=== PATIENT | male | born 1990 | race Caucasian/White ===

== ENCOUNTER 2020-04-17 21:07 | Emergency (ER) | payer OTHER ==
[~2020-04-17] VITALS: Ht 177.8 cm; Wt 83.9 kg
[2020-04-17] MEDS ORDERED: TETRACAINE HCL 0.5% OPTH(EYE) SOLN 4ML LEFTEYE ONE (21:30)
[2020-04-17] MEDS ORDERED: ONDANSETRON HCL 4 MG/2 ML VIAL IV ONE (22:15)
[2020-04-17] MEDS ORDERED: MORPHINE SULFATE 4 MG/ML SYR/VIAL IV ONE ×2 (22:15→23:45)
[2020-04-17] MEDS ORDERED: SODIUM CHLORIDE 0.9% 1,000 ML IV ONE (22:15)
[2020-04-17 23:25] VITALS: BP 127/87
[2020-04-18 01:10] LABS: INR 1.02 (0.9-1.15); Partial Thromboplastin Time 27.6 sec (23.0-31.2)
[2020-04-18 01:21] LABS: Alanine Aminotransferase 47 U/L (16-61); Albumin 4.1 g/dL (3.4-5.0); Anion Gap 10 (5-15); Aspartate Aminotransferase 71 U/L (15-37); Blood Urea Nitrogen 10 mg/dL (7-18); Calcium 8.2 mg/dL (8.5-10.1); Carbon Dioxide 22 mmol/L (21-32); Chloride 109 mmol/L (98-107); GFR African American 129 mL/min; GFR Non-African American 106 mL/min; Glucose 111 mg/dL (74-106); Magnesium 2.2 mg/dL (1.6-2.6); Potassium 3.5 mmol/L (3.5-5.1); Sodium 141 mmol/L (136-145)
[2020-04-18 01:26] LABS: Alkaline Phosphatase 88 U/L (45-117); Bilirubin, Total 0.7 mg/dL (0.2-1.0); Total Protein 7.3 g/dL (6.4-8.2)
== END 2020-04-18 00:30 | disposition short-term general hospital (02) ==
LOC: ER 21:11
DX: S05.32XA Ocular laceration without prolapse or loss of intraocular tissue, left eye, initial encounter (principal); H33.012 Retinal detachment with single break, left eye; X58.XXXA Exposure to other specified factors, initial encounter; Y93.89 Activity, other specified; Y92.89 Other specified places as the place of occurrence of the external cause; Y99.8 Other external cause status
CPT/HCPCS: 36415; 70480; 80053; 83605; 83735; 83880; 84443; 84484; 85610; 85730; 93005; 96361; 96374; 96375; 96376; 99285; J2270; J2405; J7030

== ENCOUNTER 2020-09-12 19:33 | Emergency (ER) | payer OTHER ==
[~2020-09-12] VITALS: Ht 177.8 cm; Wt 83.9 kg
[2020-09-12] MEDS ORDERED: BACITRACIN TOP OINT 1 UD PKG TOP ONE (22:30)
[2020-09-12] MEDS ORDERED: cefTRIAXone SOD 1,000 MG VL IM ONE (22:30)
[2020-09-12] MEDS ORDERED: IBUPROFEN 600 MG TAB PO ONE (22:30)
[2020-09-12 23:10] VITALS: BP 137/87
== END 2020-09-12 23:15 | disposition home or self-care (01) ==
LOC: ER 19:34
DX: S61.211A Laceration without foreign body of left index finger without damage to nail, initial encounter (principal); F12.10 Cannabis abuse, uncomplicated; W26.9XXA Contact with unspecified sharp object(s), initial encounter; Y93.89 Activity, other specified; Y92.89 Other specified places as the place of occurrence of the external cause; Y99.8 Other external cause status
CPT/HCPCS: 12002; 73140; 96372; 99283; J0696

== ENCOUNTER 2024-06-16 20:59 | Emergency (ER) | payer MEDICAID, OTHER ==
[~2024-06-16] VITALS: Ht 177.8 cm; Wt 84.0 kg
--- NOTE | 2024-06-16 21:07 | ED.PDOC ---
Psychiatric HPI Comments 33-year-old male with no PMHx or PSHx brought in by EMS presents with a chief complaint of suicidal ideation and alcohol intoxication. Patient was brought in by [facility] and fire department after being found sleeping in his bed with a belt around his neck. Patient is heavily intoxicated and has slurred speech. Patient reports that he tried to take his life and "I don't want to be here, you guys should have left me in my bed". Per , patient has a DUI. Patient uncooperative at time of physical assessment. 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, Medications, Allergies Information Source: Emergency Med Personnel Mode of Arrival: EMS Severity: Unable to Care for Self, Unable to Control Self Severity of Pain: None Severity of Mental Status: Moderate Severity of Symptoms: Moderate Timing: Minutes Duration: Since onset Prehospital treatment: None Presents with: Suicidal Ideation, Alcohol Intoxication Attempt: Hanging Ingestion: ETOH Circumstance: Found:Sleeping Current substance abuse: ETOH History of: Suicidal Attempt Past Medical History PAST MEDICAL HISTORY: Denies Surgical History: Denies all surgeries Family History Family History: Unknown Social History Smoker: Non-Smoker, Other Alcohol: Heavy Drugs: Marijuana Lives In: Home Constitutional: denies: chills, diaphoresis, fatigue, fever, malaise, sweats, weakness, others EENTM: denies: blurred vision, double vision, ear bleeding, ear discharge, ear drainage, ear pain, ear ringing, eye pain, eye redness, hearing loss, mouth pain, mouth swelling, nasal discharge, nose bleeding, nose congestion, nose pain, photophobia, tearing, throat pain, throat swelling, voice changes, others Respiratory: denies: cough, hemoptysis, orthopnea, SOB at rest, shortness of breath, SOB with excertion, stridor, wheezing, others Cardiovascular: denies: chest pain, dizzy spells, diaphoresis, Dyspnea on exertion, edema, irregular heart beat, left arm pain, lightheadedness, palpitations, PND, syncope, others Gastrointestinal: denies: abdomen distended, abdominal pain, blood streaked bowels, constipated, diarrhea, dysphagia, difficulty swallowing, hematemesis, melena, nausea, poor appetite, poor fluid intake, rectal bleeding, rectal pain, vomiting, others Genitourinary: denies: burning, dysuria, flank pain, frequency, hematuria, incontinence, penile discharge, penile sore, pain, testicle pain, testicle swelling, urgency, others Neurological: denies: dizziness, fainting, headache, left sided numbness, left sided weakness, numbness, paresthesia, pre-existing deficit, right sided numbness, right sided weakness, seizure, speech problems, tingling, tremors, weakness, others Musculoskeletal: denies: back pain, gout, joint pain, joint swelling, muscle p ain, muscle stiffness, neck pain, others Integumetry: denies: bruises, change in color, change in hair/nails, dryness, laceration, lesions, lumps, rash, wounds, others Allergic/Immunocompromised: denies: Difficulty Healing, Frequent Infections, Hives, Itching, others Hematologic/Lymphatic: denies: anemia, blood clots, easy bleeding, easy bruising, swollen glands, others Endocrine: denies: excessive hunger, excessive sweating, excessive thirst, excessive urination, flushing, intolerance to cold, intolerance to heat, unexplained weight gain, unexplained weight loss, others Psychiatric: reports: suicidal; denies: anxiety, bipolar disorder, depression, hopeless, panic disorder, schizophrenia, sleepless, others All Other Systems: Reviewed and Negative Physical Exam General Appearance: No Apparent Distress, Normal, Severe Distress HEENT: Normal ENT Inspection, Pharynx Normal, TMs Normal Neck: Full Range of Motion, Non-Tender, Normal, Normal Inspection Respiratory: Chest Non-Tender, Lungs Clear, No Accessory Muscle Use, No Respiratory Distress, Normal Breath Sounds, Other (Alcohol on his breath) Cardiovascular: No Edema, No JVD, No Murmur, No Gallop, Normal Peripheral Pulses, Regular Rate/Rhythm Breast Exam: Deferred Gastrointestinal: No Organomegaly, Non Tender, No Pulsatile Mass, Normal Bowel Sounds, Soft Genitalia: Deferred Pelvic: Deferred Rectal: Deferred Extremities: No calf tenderness, Normal capillary refill, Normal inspection, Normal range of motion, Non-tender, No pedal edema Musculoskeletal : Apperance: Normal Neurologic: Alert, labor arbitrator II-XII nml as Tested, No Motor Deficits, Normal Affect, Normal Mood, No Sensory Deficits Cerebellar Function: Normal Reflexes: Normal Skin: Dry, Normal Color, Warm Lymphatic: No Adenopathy Was a procedure done? Was a procedure done?: No Psych Differential Dx Psych. Differential Dx: Depression Suicidal Differential Dx: Substance Abuse X-Ray, Labs, Meds, VS Vital Signs Date Time Temp Pulse Resp B/P (MAP) Pulse Ox O2 Delivery O2 Flow Rate FiO2 06/17/24 08:17 97.6 56 12 102/56 (71) 97.6 06/17/24 08:17 56 12 Room Air* 0 06/17/24 03:32 111 17 98 Room Air* 0 06/17/24 03:30 69 16 105/54 (71) 92 06/17/24 02:30 70 16 105/57 (73) 92 06/17/24 01:30 71 15 106/52 (70) 92 06/17/24 00:30 60 13 108/57 (74) 92 06/16/24 23:30 64 13 104/51 (68) 92 06/16/24 22:30 79 15 131/74 (93) 92 06/16/24 21:55 97.9 85 14 138/79 (98) 92 97.9 06/16/24 21:07 103 16 144/82 (102) 99 Current Medications Medications (Trade) Dose Ordered Sig/Alexey Route Start Time Stop Time Status Last Admin Haloperidol Lactate (Haldol) 10 mg ONCE ONCE IM 06/16/24 21:15 06/16/24 21:16 DC 06/16/24 21:43 Lorazepam (Ativan Inj) 2 mg ONCE ONCE IM 06/16/24 21:15 06/16/24 21:16 DC 06/16/24 21:41 Diphenhydramine HCl (Benadryl Injection) 50 mg ONCE ONCE IM 06/16/24 21:15 06/16/24 21:16 DC 06/16/24 21:42 The patient is extremely and severely agitated and combative. Unwilling to cooperated and had to be sedated with Haldol Ativan and Benadryl. Time of 1ST Reevaluation: 21:30 Reevaluation 1ST: Unchanged Patient Education/Counseling: Diagnosis, Treatment, Prognosis Family Education/Counseling: No Family Present Departure 1 Departure Time of Disposition: 09:49 (Patient was cleared for discharge by psychiatry. 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 You can take Tylenol or Motrin as needed for pain. You should follow up with your regular doctor within 1 week. You should stay well rested and well hydrated. If your symptoms worsen or you have any other concerns please return to the emergency room. Discharged With: Self Critical Care Note Critical Care Time?: No Stability Stability form required: No I personally scribed for TRACY INIGUEZ MD ([email or web address]) on 06/16/24 at 21:07. Electronically submitted by Abdiel Mason ([email or web address]). TRACY INIGUEZ MD Jun 16, 2024 21:07 SARIKA PENA MD Jun 17, 2024 09:49
[2024-06-16] MEDS: SODIUM CHLORIDE 0.9% 1,000 ML IV ONE ×2 (21:15)
[2024-06-16] MEDS: LORazepam 2MG/ML-1ML VIAL IM ONE (21:41)
[2024-06-16] MEDS: diphenhdrAMINE HCL 50 MG/1 ML VL IM ONE (21:42)
[2024-06-16] MEDS: HALOPERIDOL LACTATE 5 MG/ML INJ VIAL IM ONE (21:43)
[2024-06-17 03:32] VITALS: PULSE 111; RESP 17; O2SAT 98
[2024-06-17 08:17] VITALS: BP 102/56; PULSE 56; RESP 12; TEMP 97.6
--- NOTE | 2024-06-17 09:29 | DVHINCON2 ---
Date of Service if different f: Jun 17, 2024 Time of Service: 09:07 Consultation ([facility]) Consulting Physician: NAEL PITT MD Appearance: Stated age Psychomotor activity: WNL, Calm Behavioral: Cooperative Eye contact: Appropriate Speech: WNL Affect: Appropriate, Mood Congruent Mood: Depressed Thought processes: Linear/Goal-directed Thought content: WNL Suicidal ideations: Absent Homicidal ideations: Absent Orientation: Person, Place, Time, Situation Memory intact: Recent Intellect: Average Abstractability: WNL Concentration: Adequate Attention: Adequate Judgement: WNL Insight: Good Vitals Vital Signs Date Time Temp Pulse Resp B/P (MAP) Pulse Ox O2 Delivery O2 Flow Rate FiO2 06/17/24 08:17 97.6 56 12 102/56 (71) 97.6 06/17/24 08:17 Room Air* 0 21 06/17/24 03:32 98 Treatment plan discussed: With staff Medication adjusted: No Labs ordered: No Psychotherapy provided: No Type: Voluntary History of Present Illness Reason for Consult : psychiatric evaluation PER ED PHYSICIAN: 33-year-old male with no PMHx or PSHx brought in by EMS presents with a chief complaint of suicidal ideation and alcohol intoxication. Patient was brought in by [facility] and fire department after being found sleeping in his bed with a belt around his neck. Patient is heavily intoxicated and has slurred speech. Patient reports that he tried to take his life and "I don't want to be here, you guys should have left me in my bed". Per [facility], patient has a DUI. Patient uncooperative at time of physical assessment. PSYCHIATRIST HPI: The patient was seen and evaluated at [facility] ED via telepsychiatry platform. 33 yr old male BIBA with suicidal ideation and alcohol intoxication. He was found with a belt around his neck asleep. He reported he was highly intoxicated yesterday. He got upset about work and started drinking alcohol and figures he had at least six double shots. His friend found him when he was sleeping. He denied having any suicidal ideation, plan or intent. He reported he plans to go to alcoholic anonymous and is motivated to stop drinking so he can be there for his child. He noted he was upset due to getting A DUI on his way home for work so went home and fell asleep. He has a past DUI 12 years ago so is aware of the legal stress and requirements around it as far as substance use classes and sobriety. He is concerned that he may lose his job, but denied having suicidal or homicidal ideation and denied having auditory and visual hallucinations. Past Psychiatric History : No past hospitalization, treatment or suicide a ttempts. Past Medical History: hypertension Current Medications: losartan NKDA Substance use: Alcohol- sometimes drinks a lot but sometimes goes without for a month or two. Received DUI yesterday on his way home from work. Had DUI 12 years. Denied other substance use. Social History : Lives in [place] with his parents (rents a room from a friend). Never . One 7 yr old son who lives with his mother and he has regular contact with. 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 Diagnosis: ALCOHOL USE DISORDER, MODERATE Formulation: This 33 yr old male appears to suffer from alcohol use disorder and was stopped for a DUI and frustrated last night when he went home intoxicated and fell asleep. He reported multiple reasons for living and a plan to start AA and work on sobriety. He is no longer suicidal and does not warrant psychiatric hospitalization. He may benefit from starting AA and getting into substance use treatment. Plan: 1. Safety. The patient is a low risk for self-harm and may be managed as an outpatient. 2. Legal-voluntary 3. Medication: no medications are indicated at this time. In the future, he may consider gabapentin 100-300mg TID to help reduce cravings, Naltrexone 50mg qam to help reduce heavy drinking days. 4. Contact psychiatry if further follow up or reevaluation is desired. Follow up with outpatient mental health for medication management and therapy. 5. Case discussed with ED Physician, Michael Phillips. Assessment/Diagnosis/Plan Reviewed: Labs, Medications, Previous Orders NAEL PITT MD Jun 17, 2024 09:08
== END 2024-06-17 10:08 | disposition home or self-care (01) ==
LOC: EDUNIT# 20:59 → EDBD 20:59 → ER 20:59
DX: F10.129 Alcohol abuse with intoxication, unspecified (principal); F32.9 Major depressive disorder, single episode, unspecified; R45.851 Suicidal ideations; F12.10 Cannabis abuse, uncomplicated; Y90.0 Blood alcohol level of less than 20 mg/100 ml
CPT/HCPCS: 96372; 99285; J1200; J1630; J2060